=== PATIENT | female | born 1995 | race Caucasian/White ===

== ENCOUNTER → 2017-04-02 | Outpatient (CLI) | payer OTHER ==
[2017-04-02 18:31] LABS: BASO # 0.1 K/mm3 (0.0-0.2); BASO % 0.8 % (0.0-1.0); EOS # 0.1 K/mm3 (0.0-0.50); EOS % 0.8 % (0.0-3.0); LARGE UNSTAINED CELL # 0.1 K/mm3 (0.0-0.4); LARGE UNSTAINED CELL % 1.5 % (0.0-4.0); LYMPH # 2.2 K/mm3 (1.5-6.5); MEAN CORPUSCULAR HEMOGLOBIN 29.2 pg (27.0-33.0); MEAN CORPUSCULAR HGB CONC 34.4 g/dl (32.0-36.5); MEAN CORPUSCULAR VOLUME 84.9 fl (80.0-96.0); MONO # 0.4 K/mm3 (0.0-0.8); MONO % 4.7 % (0.0-5.0); NEUTROPHILS # 5.6 K/mm3 (1.8-7.7); NEUTROPHILS % 67.2 % (36.0-66.0); PLATELET COUNT, AUTOMATED 302 k/mm3 (150-450); RED CELL DISTRIBUTION WIDTH 12.8 % (11.5-14.5); WHITE BLOOD COUNT 8.3 K/mm3 (4.0-10.0)
[2017-04-03 10:33] LABS: HBsAg Prenatal NEGATIVE (NEGATIVE)
== END ==
LOC: M SMT 13:05
PROVIDERS: ATTEND Advanced Practice Midwife
DX: Z34.81 Encounter for supervision of other normal pregnancy, first trimester (principal)

== ENCOUNTER → 2017-04-16 | Outpatient (REF) | payer OTHER | LOC: M LAB REF 17:24 | PROVIDERS: ATTEND Advanced Practice Midwife | DX: Z34.81 Encounter for supervision of other normal pregnancy, first trimester (principal) ==

== ENCOUNTER → 2017-07-01 | Outpatient (CLI) | payer OTHER ==
--- NOTE | 2017-07-01 13:26 | REP ---
OB ULTRASOUND: Real-time sonographic evaluation of the gravid uterus performed. There is a single living intrauterine gestation. Estimated gestational age is 19 weeks 2 days based on LMP with EDC 11/23/2017. Today's measurements indicate appropriate growth. BPD 42 mm = 18 weeks 5 days, 35th percentile HC 167 mm = 19 weeks 3 days, 52nd percentile AC 129 mm = 18 weeks 3 days, 32nd percentile Femur length 29 mm = 18 weeks 6 days, 40th percentile HC/AC ratio 1.29 is slightly above the normal range of 1.06 to 1.25. Estimated weight 255 grams, 27th percentile. Cervix closed and measures 3 cm in length. heart rate 145 beats per minute. SEEN/GROSSLY UNREMARKABLE Lateral ventricles Yes Posterior fossa Yes Upper lip No Four-chamber heart Yes LVOT Yes RVOT No Stomach Yes Cord insertion Yes Three vessel cord No Kidneys Yes Bladder Yes Spine Yes position: Breech. Placenta: Posterior and grade 0 with no previa or abruption. Amniotic fluid: Within normal limits. Signed by Hans Alan MD 07/01/2017 01:44 P
== END ==
LOC: M RAD 11:55
PROVIDERS: ATTEND Obstetrics & Gynecology
DX: Z36 Encounter for antenatal screening of mother (principal)

== ENCOUNTER → 2017-07-20 | Outpatient (CLI) | payer OTHER ==
--- NOTE | 2017-07-20 10:33 | REP ---
Obstetric sonography: History: Supervision of for anatomy. Findings: Scanning through the gravid uterus demonstrates a viable single intrauterine gestation in a breech lie. motion is observed and heart rate is recorded at 157 beats per minute. A posterior grade 0 placenta is seen without evidence of previa or abruption. Amniotic fluid is subjectively normal. Closed cervical length is 3.2 cm visualized transabdominally. No extrauterine abnormalities observed. There has been appropriate interval growth. No anomaly is seen. nose and lips are seen but facial profile could not be adequately visualized. Similarly, there was suboptimal visualization of the heart. The following anatomic structures are identified and felt to be sonographically unremarkable: cranium, choroid plexus, cavum, cerebellum and posterior fossa, lungs, diaphragm, left-sided stomach, abdominal wall cord insertion, three-vessel umbilical cord, kidneys and bladder, spine, upper and lower extremities. Biometry chart: BPD 4.8 cm = 20 weeks 3 days Head circumference 19.0 cm = 21 weeks 2 days Abdominal circumference 16.3 cm = 21 weeks 2 days Femur length 3.8 cm = 22 weeks 1 day Humeral length 3.5 cm = 22 weeks 0 days Cerebellar diameter 2.3 cm = 21 weeks 0 days HC/AC ratio normal 1.17. Cephalic index normal 0.67. Estimated weight 437 grams, 0 pounds 15 ounces, 34th percentile for 22 weeks 0 days. Impression: Viable single intrauterine gestation at 21 weeks 3 days by today's composite criteria. ANTONY by today's sonography November 27, 2017. heart and facial profile less than optimally seen. Signed by Syed Myles MD 07/20/2017 01:18 P
== END ==
LOC: M RAD 08:26
PROVIDERS: ATTEND Specialist
DX: Z36.2 Encounter for other antenatal screening follow-up (principal)

== ENCOUNTER → 2017-08-12 | Outpatient (CLI) | payer OTHER ==
[2017-08-12 20:16] LABS: MEAN CORPUSCULAR HEMOGLOBIN 29.5 pg (27.0-33.0); MEAN CORPUSCULAR VOLUME 89.1 fl (80.0-96.0); PLATELET COUNT, AUTOMATED 261 10^3/uL (150-450); WHITE BLOOD COUNT 12.1 10^3/uL (4.0-10.0)
== END ==
LOC: M SMT 13:06
PROVIDERS: ATTEND Advanced Practice Midwife
DX: Z34.82 Encounter for supervision of other normal pregnancy, second trimester (principal)

== ENCOUNTER → 2017-08-26 | Outpatient (CLI) | payer OTHER | LOC: M LAB 08:05 | PROVIDERS: ATTEND Advanced Practice Midwife | DX: R73.02 Impaired glucose tolerance (oral) (principal) ==

== ENCOUNTER → 2017-10-29 | Outpatient (REF) | payer OTHER | LOC: M LAB REF 13:21 | DX: Z34.83 Encounter for supervision of other normal pregnancy, third trimester (principal) | CPT/HCPCS: 87081 ==

== ENCOUNTER 2017-11-18 05:28 | Inpatient (IN) | payer OTHER ==
[2017-11-18 06:58] LABS: HEMATOCRIT 36.6 % (36.0-47.0); HEMOGLOBIN 12.6 g/dl (12.0-16.0); MEAN CORPUSCULAR HEMOGLOBIN 29.9 pg (27.0-33.0); MEAN CORPUSCULAR HGB CONC 34.4 g/dl (32.0-36.5); MEAN CORPUSCULAR VOLUME 86.7 fl (80.0-96.0); PLATELET COUNT, AUTOMATED 244 10^3/uL (150-450); RED BLOOD COUNT 4.22 10^6/uL (4.00-5.40); WHITE BLOOD COUNT 17.1 10^3/uL (4.0-10.0)
[2017-11-18 07:27] LABS: AMPHETAMINES URINE REFLEX NEGATIVE (NEGATIVE); BARBITURATES URINE REFLEX NEGATIVE (NEGATIVE); BENZODIAZEPINES URINE REFLEX NEGATIVE (NEGATIVE); CANNABINOIDS URINE REFLEX NEGATIVE (NEGATIVE); COCAINE METABOLITE URINE REFLE NEGATIVE (NEGATIVE); METHADONE URINE REFLEX NEGATIVE (NEGATIVE); OPIATES URINE REFLEX NEGATIVE (NEGATIVE); PHENCYCLIDINE URINE REFLEX NEGATIVE (NEGATIVE)
[2017-11-18] MEDS ORDERED: OXYTOCIN 30 UNITS IN 0.9% NaCl 500ML IV BAG (J2590) As Ordered (20:15)
[2017-11-18] MEDS ORDERED: OXYTOCIN DRIP 30 UNITS in APPROPRIATE DILUENT 1 EA IV (22:30)
[2017-11-19] MEDS: LR 1,000 ML IV ×3 (00:28→16:28)
[2017-11-19] MEDS: OXYTOCIN DRIP 30 UNITS in APPROPRIATE DILUENT 1 EA IV (00:28)
[2017-11-19] MEDS ORDERED: ACETAMINOPHEN 500 MG TAB PO (00:30)
[2017-11-19] MEDS ORDERED: ONDANSETRON 4MG/2ML VIAL (J2405) IV (00:30)
[2017-11-19] MEDS ORDERED: DIBUCAINE 1% OINTMENT 30GM TOP (00:30)
[2017-11-19] MEDS ORDERED: MEASLES,MUMPS,RUBELLA VACCINE INJ (MMR-II) (90707) SC (00:30)
[2017-11-19] MEDS ORDERED: PROMETHAZINE 25 MG TAB PO (00:30)
[2017-11-19] MEDS: IBUPROFEN 800 MG TAB PO ×2 (01:59→19:18)
[2017-11-19] MEDS: LIDOCAINE 1% MDV 20ML VIAL IM (02:00)
[2017-11-19] MEDS: PRENATAL VITAMINS CHEWABLE TABLET PO (10:34)
[2017-11-19 11:30] LABS: FETAL SCREEN PROF. 1 1
[2017-11-19] MEDS: RHOGAM 300 MCG (1500 IU) INJ (J2790) IM (11:51)
[2017-11-19] MEDS: DOCUSATE SODIUM 100 MG CAP PO (19:18)
[2017-11-20] MEDS: IBUPROFEN 800 MG TAB PO (05:32)
[2017-11-20] MEDS: PRENATAL VITAMINS CHEWABLE TABLET PO (07:57)
== END 2017-11-20 14:25 | disposition home or self-care (01) | DRG 560 ==
LOC: M LDO 05:28 → M OBS 11-19 01:36 → M LDI 06:19
PROVIDERS: Specialist
PROC: 10E0XZZ Delivery of Products of Conception, External Approach (ICD-10-PCS; principal; 2017-11-19)
PROC: 0HQ9XZZ Repair Perineum Skin, External Approach (ICD-10-PCS; 2017-11-19)
DX: O70.0 First degree perineal laceration during delivery (principal); Z37.0 Single live birth; Z3A.39 39 weeks gestation of pregnancy

== ENCOUNTER → 2018-08-12 | Outpatient (CLI) | payer OTHER ==
[2018-08-12 14:03] LABS: BASO % 0.5 % (0.0-1.0); EOS # 0.1 10^3/uL (0.0-0.50); HEMATOCRIT 38.1 % (36.0-47.0); HEMOGLOBIN 12.7 g/dl (12.0-15.5); IMMATURE GRANULOCYTE % 0.4 % (0-3.0); LYMPH # 1.7 10^3/uL (1.5-6.5); MEAN CORPUSCULAR HEMOGLOBIN 28.5 pg (27.0-33.0); MEAN CORPUSCULAR HGB CONC 33.3 g/dl (32.0-36.5); MEAN CORPUSCULAR VOLUME 85.4 fl (80.0-96.0); MONO # 0.5 10^3/uL (0.0-0.8); MONO % 6.9 % (0.0-5.0); NEUTROPHILS # 5.4 10^3/uL (1.8-7.7); NEUTROPHILS % 69.2 % (36.0-66.0); PLATELET COUNT, AUTOMATED 278 10^3/uL (150-450); RED BLOOD COUNT 4.46 10^6/uL (4.00-5.40); WHITE BLOOD COUNT 7.9 10^3/uL (4.0-10.0)
[2018-08-12 16:36] LABS: CHLAMYDIA DNA AMPLIFICATION NEGATIVE (NEGATIVE); GC DNA AMPLIFICATION NEGATIVE (NEGATIVE)
[2018-08-13 10:18] LABS: HEPATITIS C VIRUS ABY INDEX < 0.0 INDEX (<0.8)
[2018-08-13 10:18] LABS: HBsAg Prenatal NEGATIVE (NEGATIVE); HIV 1&2 SCREEN CENTAUR NEGATIVE (NEGATIVE); RUBELLA IgG QUALITATIVE IMMUNE (IMMUNE)
== END ==
LOC: M SMT 11:49
DX: Z36.89 Encounter for other specified antenatal screening (principal)
CPT/HCPCS: 86762

== ENCOUNTER → 2018-11-04 | Outpatient (CLI) | payer OTHER ==
[~2018-11-04] MED LIST: COLA100C5 PO; IBUP-1114 PO; MAPA500T2 PO; PRENTAB9 PO
--- NOTE | 2018-11-04 20:58 | REP ---
Clinical: Anatomical evaluation. Comparison: 10/14/2018 . Findings: Examination demonstrates a single live intrauterine in breech presentation. motion is identified by technologist. Placenta is noted anterior and grade grade zero without evidence for placenta previa or abruption. Amniotic fluid volume is normal. Cervix measures 3.9 cm in length and appears closed. No evidence for nuchal cord. Gestational age by LMP 21 weeks 3 days with ANTONY 03/14/2019 . Gestational age by current measurements 21 weeks 0 days with ANTONY 03/17/2019 . FHR equals 144 beats per minute. Estimated weight 393 grams ( 34th percentile). Anatomical assessment demonstrates normal structures including cranium, choroid plexus, cavum, cerebellum/posterior fossa, facial features, lungs, four-chamber heart/ventricular outflow tracts, diaphragm, stomach, cord insertion/three-vessel cord, kidneys/bladder, spine, and extremities. Impression: Single live intrauterine in breech presentation demonstrating appropriate interval growth. In conjunction with prior examination anatomical assessment is complete and normal. Electronically Signed by Kristofer Nash MD 11/04/2018 08:49 P
== END ==
LOC: M RAD 13:03
PROVIDERS: ATTEND Advanced Practice Midwife
DX: O32.1XX0 Maternal care for breech presentation, not applicable or unspecified (principal); Z36.89 Encounter for other specified antenatal screening; Z3A.21 21 weeks gestation of pregnancy

== ENCOUNTER → 2018-12-17 | Outpatient (CLI) | payer OTHER ==
[2018-12-17 12:24] LABS: BASO # 0.1 10^3/uL (0.0-0.2); BASO % 0.6 % (0.0-1.0); EOS # 0.1 10^3/uL (0.0-0.50); EOS % 1.5 % (0.0-3.0); HEMATOCRIT 36.2 % (36.0-47.0); HEMOGLOBIN 12.1 g/dl (12.0-15.5); LYMPH # 1.8 10^3/uL (1.5-6.5); MEAN CORPUSCULAR HEMOGLOBIN 29.1 pg (27.0-33.0); MEAN CORPUSCULAR HGB CONC 33.4 g/dl (32.0-36.5); MONO # 0.4 10^3/uL (0.0-0.8); MONO % 4.4 % (0.0-5.0); NEUTROPHILS # 7.1 10^3/uL (1.8-7.7); NEUTROPHILS % 73.6 % (36.0-66.0); PLATELET COUNT, AUTOMATED 219 10^3/uL (150-450); RED BLOOD COUNT 4.16 10^6/uL (4.00-5.40); WHITE BLOOD COUNT 9.6 10^3/uL (4.0-10.0)
== END ==
LOC: M LAB 10:18
PROVIDERS: ATTEND Advanced Practice Midwife
DX: Z34.83 Encounter for supervision of other normal pregnancy, third trimester (principal)

== ENCOUNTER → 2019-02-15 | Outpatient (CLI) | payer OTHER | LOC: M SMT 11:27 | PROVIDERS: ATTEND Advanced Practice Midwife | DX: Z34.83 Encounter for supervision of other normal pregnancy, third trimester (principal); Z3A.00 Weeks of gestation of pregnancy not specified ==

== ENCOUNTER 2019-03-10 00:19 | Inpatient (IN) | payer OTHER ==
[~2019-03-10] VITALS: Ht 162.6 cm; Wt 74.7 kg
[2019-03-10] VITALS (7 sets, daily range): BP systolic 111–131; BP diastolic 59–78
[2019-03-10 01:16] LABS: HEMATOCRIT 36.9 % (36.0-47.0); HEMOGLOBIN 12.5 g/dl (12.0-15.5); MEAN CORPUSCULAR HEMOGLOBIN 29.1 pg (27.0-33.0); MEAN CORPUSCULAR HGB CONC 33.9 g/dl (32.0-36.5); PLATELET COUNT, AUTOMATED 209 10^3/uL (150-450); RED BLOOD COUNT 4.29 10^6/uL (4.00-5.40)
[2019-03-10] MEDS ORDERED: ZANTTAB PO (01:17)
[2019-03-10] MEDS ORDERED: OXYTOCIN 30 UNITS IN 0.9% NaCl 500ML IV BAG (J2590) As Ordered ONE (01:44)
[2019-03-10 02:22] LABS: CORD GAS ABE A -8.9; CORD GAS ABE V -8.3; CORD GAS HCO3 A 18.8 MEQ/L; CORD GAS HCO3 V 19.8 MEQ/L; CORD GAS O2 SAT A 88.2 %; CORD GAS O2 SAT V 59.9 %; CORD GAS PCO2 A 46.8 mmHg; CORD GAS PCO2 V 50.5 mmHg; CORD GAS PH A 7.222 UNITS; CORD GAS PH V 7.212 UNITS; CORD GAS PO2 V 30.3 mmHg; CORD GAS SBC A 17.3 MEQ/L; CORD GAS TCO2 A 20.2 MEQ/L; CORD GAS TCO2 V 21.4 MEQ/L
[2019-03-10] MEDS ORDERED: OXYTOCIN DRIP 30 UNITS in APPROPRIATE DILUENT 1 EA IV SCH (02:37)
[2019-03-10] MEDS ORDERED: METHYLERGONOVINE MALEATE 0.2 MG TAB PO PRN (02:45)
[2019-03-10] MEDS ORDERED: DIBUCAINE 1% OINTMENT 30GM TOP PRN (02:45)
[2019-03-10] MEDS ORDERED: IBUPROFEN 600 MG TAB PO PRN (02:45)
[2019-03-10] MEDS ORDERED: RHOGAM 300 MCG (1500 IU) INJ (J2790) IM SCH (02:45)
[2019-03-10] MEDS ORDERED: DOCUSATE SODIUM 100 MG CAP PO PRN (02:45)
[2019-03-10] MEDS ORDERED: ACETAMINOPHEN TAB 650MG DOSE (2X325MG) PO PRN (02:45)
[2019-03-10] MEDS ORDERED: MOM 30ML SUSPENSION UDC PO PRN (02:45)
[2019-03-10] MEDS ORDERED: ONDANSETRON 4MG/2ML VIAL (J2405) IV PRN (02:45)
[2019-03-10] MEDS ORDERED: ACETAMINOPHEN 500 MG TAB PO PRN (02:45)
[2019-03-10] MEDS ORDERED: ANUSOL HC CREAM 30GM TOP PRN (02:45)
[2019-03-10] MEDS ORDERED: MEASLES,MUMPS,RUBELLA VACCINE INJ (MMR-II) (90707) SC SCH (02:45)
[2019-03-10] MEDS ORDERED: IBUPROFEN 800 MG TAB PO PRN (02:45)
[2019-03-10] MEDS ORDERED: LIDOCAINE 1% MDV 20ML VIAL INFIL ONE (03:00)
--- NOTE | 2019-03-10 05:30 | HPE ---
DATE OF ADMISSION: 03/10/2019 REASON FOR ADMISSION: Labor. HISTORY OF PRESENT ILLNESS: The patient is a 23-year-old 2, para 1 who presents at 39 weeks, 3 days estimated gestational age by last menstrual period, confirmed by first trimester ultrasound who reports contractions throughout the day and they have increased in intensity and frequency. She reports active movement, denies any vaginal bleeding or leakage of fluid. Her course has been unremarkable. She initiated care in her first trimester and has been appropriate throughout. PAST MEDICAL HISTORY: None. PAST SURGICAL HISTORY: She has a tonsillectomy and adenoidectomy. OBSTETRICAL HISTORY: She is 2, para 1. She is proven 8 pounds, 3 ounces. MEDICATIONS: - Zantac - vitamins. ALLERGIES: She has no known drug allergies. SOCIAL HISTORY: She denies any alcohol, tobacco or drug use during her . PHYSICAL EXAMINATION: Vital signs: Stable. She is afebrile. heart rate 150, there is moderate variability, spontaneous accelerations with occasional variable decelerations. She is magalie approximately every 2-3 minutes. General appearance: Well appearing, no acute distress. Lungs: Lungs are clear to auscultation bilaterally. Cardiovascular: Heart regular rate and rhythm. Abdomen: Her abdomen is gravid, nontender. Estimated weight is 3600 grams. Cervical Exam: She is 6 cm dilated, 90% effaced, -2 station. Upon examination the patient experienced a contraction. She had a rupture of membranes which were clear. This was inadvertent. LABS: Blood type is A negative, antibody screen is negative. Rubella is immune. RPR is nonreactive. Hepatitis surface antigen negative. HIV is negative. Hep C is nonreactive. Chlamydia and gonorrhea screen is negative. She had a normal 1-hour Glucola, and she is GBS negative. ASSESSMENT: 1. This patient is a 23-year-old 2, para 1 at 39 weeks 3 days estimated gestational age in active labor. 2. Reassuring status. PLAN: 1. Admit to labor and delivery. CBC, RPR, type and screen. 2. Anticipate spontaneous vaginal delivery.
--- NOTE | 2019-03-10 06:49 | DN ---
DATE OF DELIVERY: 03/10/2019 TIME OF : 0207 GENDER: Female APGARS: 8 and 9. WEIGHT: 3800 grams or 8 pounds 6 ounces. LACERATION: First degree midline laceration. ESTIMATED BLOOD LOSS: 300 mL. ANESTHESIA: None. COUNTS: Four sharps removed from the delivery field. Five laparotomy sponges accounted for prior to and after delivery. DELIVERY NOTE: On 03/10/2019, at 0207, Mrs. Napoles, a 23-year-old, 2, now para 2, had a spontaneous as delivery of a live born female , Apgars 8 and 9, weight 8 pounds 6 ounces or 3800 grams. Head was delivered right occiput anterior (TRINI). There was a nuchal cord which was manually reduced. There was an attempt to deliver the left anterior shoulder with gentle downward traction that was unsuccessful. Luis Enrique maneuver was then employed as well as suprapubic pressure and approximately 10-15 seconds of shoulder dystocia which was alleviated with the suprapubic pressure. This alleviated the left shoulder and this was followed by delivery of the right shoulder and corpus. The was handed to mom with good cry. Cord was clamped times two and was cut by the father under my direction. Cord gases were obtained, 7.22 and 7.21, base excesses of -8.9 and -8.3 respectively. The placenta was then delivered grossly intact. A premixed bag of 500 mL of normal saline was bolused along with uterine massage until the uterus was firm. On inspection, there was a first-degree midline laceration which was repaired with the #3-0 Vicryl Rapide. On reinspection, the cervix, vagina and perineum was grossly intact and hemostatic. Mom and baby recovering in stable condition.
[2019-03-10] MEDS: PRENATAL VITAMINS CHEWABLE TABLET PO SCH (08:58)
[2019-03-11 05:39] VITALS: BP 104/59
[2019-03-11] MEDS: PRENATAL VITAMINS CHEWABLE TABLET PO SCH (07:58)
--- NOTE | 2019-03-11 08:10 | NUR ---
PPD# 1 S: Doing well w/o complaints. +voids, +ambulation and pain well controlled O: vss, AF gen: well appearing abd: soft, nttp ff@U ext: neg calf tenderness A/P: PPD # 1 s/p NSD, recovering in stable condition -continue routine care -d/c plans for tomorrow/ later today Tessa Haile MD
[2019-03-11] MEDS ORDERED: IBUP-1114 PO (09:31)
[2019-03-11] MEDS ORDERED: IBUP1TAB7 PO (09:31)
[2019-03-11] MEDS ORDERED: MAPA500T2 PO (09:31)
[2019-03-11] MEDS ORDERED: MOM30SS PO (09:31)
[2019-03-11] MEDS ORDERED: COLA100C5 PO (09:52)
== END 2019-03-11 12:00 | disposition home or self-care (01) | DRG 560 ==
LOC: M LDO 00:19 → M LDI 00:51 → M OBS 04:38
PROVIDERS: ADMIT Obstetrics & Gynecology; ATTEND Obstetrics & Gynecology
PROC: 10E0XZZ Delivery of Products of Conception, External Approach (ICD-10-PCS; principal; 2019-03-10)
PROC: 0HQ9XZZ Repair Perineum Skin, External Approach (ICD-10-PCS; 2019-03-10)
DX: O70.0 First degree perineal laceration during delivery (principal); O69.82X0 Labor and delivery complicated by other cord entanglement, without compression, not applicable or unspecified; Z37.0 Single live birth

== ENCOUNTER → 2019-06-20 | Outpatient (REF) | payer OTHER ==
[~2019-06-20] MED LIST changes: +IBUP1TAB7 PO; +MOM30SS PO; +ZANT150T40 PO
== END ==
LOC: M LAB REF 19:35
PROVIDERS: ATTEND Advanced Practice Midwife
DX: Z12.4 Encounter for screening for malignant neoplasm of cervix (principal)

== ENCOUNTER 2020-06-23 11:19 | Emergency (ER) | payer OTHER ==
[~2020-06-23] VITALS: Ht 162.6 cm; Wt 54.2 kg
[2020-06-23] MEDS ORDERED: NS 1,000 ML IV ONE (11:45)
[2020-06-23] MEDS ORDERED: METOCLOPRAMIDE INJ 10MG/2ML VIAL (J2765 PER 1) IV ONE (11:45)
[2020-06-23 12:06] LABS: BASO % 0.9 % (0.0-1.0); HEMATOCRIT 43.1 % (36.0-47.0); HEMOGLOBIN 14.7 g/dl (12.0-15.5); LYMPH # 0.9 10^3/uL (1.5-5.0); MEAN CORPUSCULAR HEMOGLOBIN 28.6 pg (27.0-33.0); MEAN CORPUSCULAR HGB CONC 34.1 g/dl (32.0-36.5); MEAN CORPUSCULAR VOLUME 83.9 fl (80.0-96.0); MONO # 0.4 10^3/uL (0.0-0.8); MONO % 11.1 % (0.0-5.0); NEUTROPHILS # 2.2 10^3/uL (1.5-8.5); NEUTROPHILS % 62.7 % (36.0-66.0); PLATELET COUNT, AUTOMATED 235 10^3/uL (150-450); RED BLOOD COUNT 5.14 10^6/uL (4.00-5.40); WHITE BLOOD COUNT 3.5 10^3/uL (4.0-10.0)
[2020-06-23 12:49] LABS: BLOOD UREA NITROGEN 9 MG/DL (7-18); CALCIUM LEVEL 9.3 MG/DL (8.5-10.1); CARBON DIOXIDE LEVEL 24 MEQ/L (21-32); CHLORIDE LEVEL 104 MEQ/L (98-107); CK-MB VALUE MASS < 1.0 NG/ML (<3.6); CPK CREATINE PHOSPHOKINASE 44 U/L (26-192); CREATININE FOR GFR 0.68 MG/DL (0.55-1.30); GLOMERULAR FILTRATION RATE > 60.0 (>60); GLUCOSE, FASTING 78 MG/DL (70-100); HCG, SERUM QUANTITATIVE 115393 MIU/ML; MAGNESIUM LEVEL 2.2 MG/DL (1.8-2.4); MB/CK RELATIVE INDEX 2.27 (< OR =4); POTASSIUM SERUM 3.6 MEQ/L (3.5-5.1); SODIUM LEVEL 135 MEQ/L (136-145); TROPONIN I < 0.02 NG/ML (< 0.10)
--- NOTE | 2020-06-23 14:07 | REPVR ---
PROCEDURE INFORMATION: Exam: US First Trimester, Transabdominal Exam date and time: 06/23/2020 1:33 PM Age: 24 years old Clinical indication: complicated by abdominal or pelvic pain; Generalized abdominal pain; First trimester; Gestational age or lmp: 10; ; Additional info: 10wks pregnat with abd pain TECHNIQUE: Imaging protocol: Real-time transabdominal obstetrical ultrasound of the maternal pelvis and a first trimester , less than 14 weeks 0 days, with image documentation. COMPARISON: No relevant prior studies available. FINDINGS: Gestation: There is a single intrauterine . Embryonic/ heart rate: cardiac activity present at a rate of 170 bpm. Placenta: Unremarkable. No subchorionic bleed. Amniotic fluid: Amniotic fluid is normal for gestational age. BIOMETRY: [place]-Rump length: pole has a crown-rump length measurement of 3.64 cm for a menstrual age of 10 weeks and 4 days. MATERNAL: Uterus: Unremarkable. Cervix: Unremarkable. Closed at the time of the examination Right adnexa: Maternal right ovary measures 2.2 by 2.7 x 2.1 cm. The Left adnexa: Maternal left ovary measures 2 x 2.6 x 2.1 cm. Intraperitoneal space: No intraperitoneal free fluid. IMPRESSION: 1. Single live intrauterine with an estimated menstrual age of 10 weeks and 4 days with a range of 9 weeks and 5 days to 11 weeks and 3 days. Expected date of delivery 01/15/2021 Electronically signed by: Davina Kilpatrick On 06/23/2020 14:07:28 PM
[2020-06-23 14:17] LABS: APPEARANCE, URINE HAZY (CLEAR); BACTERIA, URINE AUTO 1+ (NEGATIVE); BILIRUBIN, URINE AUTO NEGATIVE (NEGATIVE); BLOOD, URINE BLOOD NEGATIVE (NEGATIVE); COLOR, URINE AMBER (YELLOW); GLUCOSE, URINE (UA) AUTO NEGATIVE (NEGATIVE); KETONE, URINE AUTO 2+ mg/dL (NEGATIVE); LEUKOCYTE ESTERASE, URINE AUTO NEGATIVE (NEGATIVE); MUCUS, URINE LARGE (NEGATIVE); NITRITE, URINE AUTO NEGATIVE (NEGATIVE); PROTEIN, URINE AUTO 1+ mg/dL (NEGATIVE); RBC, URINE AUTO 1 /HPF (0-3); SPECIFIC GRAVITY URINE AUTO 1.032 (1.002-1.035); SQUAMOUS EPITHELIAL CELL UR AU 2 /HPF (0-6); UROBILINOGEN, URINE AUTO 0.2 mg/dL (0.0-2.0); WBC, URINE AUTO 3 /HPF (0-3)
[2020-06-23] MEDS ORDERED: KEFL500C17 PO (14:25)
[2020-06-23 14:52] VITALS: BP 110/69
--- NOTE | 2020-06-25 08:48 | ECGEPIP ---
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
[2020-07-08 00:06] LABS: VITAMIN B1 LEVEL WHOLE BLOOD 95.7 nmol/L (66.5-200.0)
== END 2020-06-23 14:55 | disposition home or self-care (01) ==
LOC: M ED 11:19
DX: O23.91 Unspecified genitourinary tract infection in pregnancy, first trimester (principal); O12.11 Gestational proteinuria, first trimester; O26.899 Other specified pregnancy related conditions, unspecified trimester; R19.7 Diarrhea, unspecified; Z79.899 Other long term (current) drug therapy; Z3A.10 10 weeks gestation of pregnancy
CPT/HCPCS: 76801; 80048; 81001; 82550; 82553; 82607; 82746; 83605; 83735; 84252; 84425; 84702; 85025; 86901; 87040; 87086; 87507; 93005; 96361; 96374; 99284; J2765

== ENCOUNTER → 2020-07-10 | Outpatient (CLI) | payer OTHER ==
[~2020-07-10] MED LIST changes: +KEFL500C17 PO
[2020-07-10 12:42] LABS: BASO # 0.1 10^3/uL (0.0-0.2); BASO % 1.8 % (0.0-1.0); EOS # 0.2 10^3/uL (0.0-0.5); HEMATOCRIT 37.7 % (36.0-47.0); HEMOGLOBIN 12.5 g/dl (12.0-15.5); LYMPH % 33.5 % (24.0-44.0); MEAN CORPUSCULAR HEMOGLOBIN 28.3 pg (27.0-33.0); MEAN CORPUSCULAR HGB CONC 33.2 g/dl (32.0-36.5); MEAN CORPUSCULAR VOLUME 85.3 fl (80.0-96.0); MONO # 0.3 10^3/uL (0.0-0.8); MONO % 5.3 % (0.0-5.0); NEUTROPHILS # 3.4 10^3/uL (1.5-8.5); NEUTROPHILS % 56.1 % (36.0-66.0); PLATELET COUNT, AUTOMATED 285 10^3/uL (150-450); RED BLOOD COUNT 4.42 10^6/uL (4.00-5.40)
[2020-07-10 13:48] LABS: HEPATITIS C VIRUS ABY INDEX 0.1 INDEX (<0.8); HIV 1&2 SCREEN CENTAUR NEGATIVE (NEGATIVE)
== END ==
LOC: M PLALAB 08:15
PROVIDERS: ATTEND Advanced Practice Midwife
DX: Z34.81 Encounter for supervision of other normal pregnancy, first trimester (principal); Z3A.00 Weeks of gestation of pregnancy not specified

== ENCOUNTER → 2020-08-14 | Outpatient (CLI) | payer OTHER ==
--- NOTE | 2020-08-14 10:26 | REP ---
INDICATION: ANATOMY. COMPARISON: 06/23/2020. TECHNIQUE: Real-time sonographic evaluation of the gravid uterus performed. FINDINGS: Estimated gestational age is17 weeks 6 days, EDC 01/16/2021. Today's measurements indicate appropriate growth. Presentation: Transverse, head maternal right side. Placenta anterior, grade 0, without evidence of placenta previa. heart rate is recorded at 179 beats per minute. Amniotic fluid is subjectively normal. Closed cervical length is measured at 3.2 cm. Biometry chart: BPD: 39 mm, 17 weeks 6 days, 50th percentile. HC: 148 mm, 18 weeks 0 days, 51st percentile AC: 124 mm, 18 weeks 0 days, 52nd percentile Femur length: 26 mm, 17 weeks 6 days, 47th percentile HC to AC ratio: 1.20, normal range 1.08-1.27. Estimated weight: 215g, 45th percentile. anatomy: Cranium: Grossly normal Lateral Ventricles/Choroid Plexus: Grossly normal Posterior Fossa/Cerebellum: Grossly normal Nose/lips/profile: Not well visualized. Four chamber heart: Grossly normal Right ventricular outflow tract: Grossly normal Left ventricular outflow tract: Grossly normal Left-sided stomach: Grossly normal Kidneys: Grossly normal Bladder: Grossly normal Cord Insertion: Grossly normal 3 vessel cord: Grossly normal Spine: Not well visualized. IMPRESSION: Viable single intrauterine gestation as above. Facial structures and spine not well visualized due to position. <Electronically signed by Hans Alan > 08/14/20 1022
== END ==
LOC: M WHC 09:10
PROVIDERS: ATTEND Advanced Practice Midwife
DX: O32.2XX0 Maternal care for transverse and oblique lie, not applicable or unspecified (principal); Z36.89 Encounter for other specified antenatal screening; Z3A.17 17 weeks gestation of pregnancy

== ENCOUNTER → 2020-10-19 | Outpatient (REF) | payer OTHER ==
[2020-10-19 15:41] LABS: HEMATOCRIT 39.7 % (36.0-47.0); HEMOGLOBIN 12.7 g/dl (12.0-15.5); MEAN CORPUSCULAR HEMOGLOBIN 28.5 pg (27.0-33.0); PLATELET COUNT, AUTOMATED 240 10^3/uL (150-450); RED BLOOD COUNT 4.46 10^6/uL (4.00-5.40); WHITE BLOOD COUNT 9.7 10^3/uL (4.0-10.0)
== END ==
LOC: M PLALAB 12:58
PROVIDERS: ATTEND Advanced Practice Midwife
DX: Z34.92 Encounter for supervision of normal pregnancy, unspecified, second trimester (principal); Z3A.00 Weeks of gestation of pregnancy not specified

== ENCOUNTER → 2020-10-29 | Outpatient (REF) | payer OTHER | LOC: M PLALAB 15:31 | PROVIDERS: ATTEND Advanced Practice Midwife | DX: Z34.92 Encounter for supervision of normal pregnancy, unspecified, second trimester (principal) | CPT/HCPCS: 86850; 86900; 86901; J2790 ==

== ENCOUNTER → 2020-12-14 | Outpatient (REF) | payer OTHER | LOC: M SFHCWAGY 13:05 | PROVIDERS: ATTEND Advanced Practice Midwife | DX: O09.293 Supervision of pregnancy with other poor reproductive or obstetric history, third trimester (principal); Z53.9 Procedure and treatment not carried out, unspecified reason; Z3A.00 Weeks of gestation of pregnancy not specified ==

== ENCOUNTER → 2020-12-28 | Outpatient (CLI) | payer OTHER | LOC: M WHC 12:14 | PROVIDERS: ATTEND Obstetrics & Gynecology | DX: O09.293 Supervision of pregnancy with other poor reproductive or obstetric history, third trimester (principal); Z3A.37 37 weeks gestation of pregnancy ==

== ENCOUNTER → 2021-01-02 | Outpatient (CLI) | payer OTHER ==
--- NOTE | 2021-01-02 18:00 | REP ---
INDICATION: GROWTH. COMPARISON: Comparison sonography is from September.. TECHNIQUE: Transabdominal obstetric sonography. FINDINGS: Scanning through the gravid uterus demonstrates a viable single intrauterine gestation in cephalic lie. motion is observed and heart rate is recorded at 143 beats per minute. A anterior placenta is seen, grade 2, without evidence of placenta previa. Closed cervical length could not be measured due to low head position. No extrauterine abnormality is observed. Amniotic fluid is subjectively normal. STEPHEN is normal at 12.3 cm.. Biometry chart: BPD 8.9 cm, 35 weeks 6 days Head circumference 32.9 cm, 37 weeks 3 days Abdominal circumference 33.9 cm, 37 weeks 6 days Femur length 7.0 cm, 36 weeks 0 days Humeral length 6.3 cm, 36 weeks 2 days HC AC ratio normal 0.97 Cephalic index normal 0.75 Estimated weight 3117 g, 6 lb 13 oz, 39th percentile for 38 weeks 0 days. IMPRESSION: Viable single intrauterine gestation at 36 weeks 5 days by today's composite sonographic criteria. ANTONY by today's sonography January 25, 2021. No complication identified. Expected gestational age estimate based on prior sonography is 38 weeks 0 days, ANTONY January 16, 2021. Estimated weight 39th percentile. <Electronically signed by Robert Myles > 01/02/21 [id number]
== END ==
LOC: M WHC 15:17
PROVIDERS: ATTEND Obstetrics & Gynecology
DX: Z36.9 Encounter for antenatal screening, unspecified (principal); Z3A.38 38 weeks gestation of pregnancy

== ENCOUNTER 2021-01-08 07:35 | Inpatient (IN) | payer OTHER ==
[~2021-01-08] VITALS: Ht 162.6 cm; Wt 74.5 kg
[2021-01-08] MEDS ORDERED: METHYLERGONOVINE MALEATE 0.2 MG/ML VIAL (J2210) IM PRN (08:25)
[2021-01-08] MEDS ORDERED: CARBOPROST TROMETHAMINE 250 MCG/ML AMP IM PRN (08:25)
[2021-01-08] MEDS ORDERED: OXYTOCIN DRIP 30 UNITS in IV 1 EA IV PRN (08:25)
[2021-01-08] MEDS ORDERED: LIDOCAINE 1% MDV 20ML VIAL INFIL PRN (08:25)
[2021-01-08] MEDS ORDERED: TRANEXAMIC ACID INJection 1,000 MG in NS 100 ML IV PRN (08:25)
[2021-01-08 08:47] LABS: HEMATOCRIT 40.6 % (36.0-47.0); HEMOGLOBIN 13.5 g/dl (12.0-15.5); MEAN CORPUSCULAR HEMOGLOBIN 28.9 pg (27.0-33.0); MEAN CORPUSCULAR HGB CONC 33.3 g/dl (32.0-36.5); MEAN CORPUSCULAR VOLUME 86.9 fl (80.0-96.0); PLATELET COUNT, AUTOMATED 211 10^3/uL (150-450); RED BLOOD COUNT 4.67 10^6/uL (4.00-5.40); WHITE BLOOD COUNT 14.1 10^3/uL (4.0-10.0)
[2021-01-08] MEDS ORDERED: OXYTOCIN 30 UNITS IN 0.9% NaCl 500ML IV BAG (J2590) As Ordered ONE (09:01)
[2021-01-08] MEDS ORDERED: OXYTOCIN DRIP 30 UNITS in IV 1 EA IV SCH (10:19)
[2021-01-08] MEDS ORDERED: ACETAMINOPHEN 500 MG TAB PO PRN (10:20)
[2021-01-08] MEDS ORDERED: METHYLERGONOVINE MALEATE 0.2 MG TAB PO PRN (10:20)
[2021-01-08] MEDS ORDERED: RHOGAM 300 MCG (1500 IU) INJ (J2790) IM SCH (10:20)
[2021-01-08] MEDS ORDERED: DIBUCAINE 1% OINTMENT 30GM TOP PRN (10:20)
[2021-01-08] MEDS ORDERED: DOCUSATE SODIUM 100MG CAPSULE PO PRN (10:20)
[2021-01-08] MEDS ORDERED: ANUSOL HC CREAM 30GM TOP PRN (10:20)
[2021-01-08] MEDS ORDERED: ACETAMINOPHEN TAB 650MG DOSE (2X325MG) PO PRN (10:20)
[2021-01-08] MEDS ORDERED: IBUPROFEN 600MG TAB PO PRN (10:20)
[2021-01-08] MEDS ORDERED: MEASLES,MUMPS,RUBELLA VACCINE INJ (MMR-II) (90707) SC SCH (10:20)
--- NOTE | 2021-01-08 10:26 | DNPDOC ---
[facility] Delivery Note Delivery Note DATE OF DELIVERY: 01/08/21 at 0931 PREDELIVERY DIAGNOSIS: 38-6/7 weeks' gestation and labor. POST DELIVERY DIAGNOSIS: Delivered. PROCEDURE: Spontaneous vaginal delivery. CARE TAKER: Pratima Moore CNM, DAMIAN ANESTHESIA: none. ESTIMATED BLOOD LOSS: 100 mL. FINDINGS: 7 pounds 6 ounces; 3350 grams; female infant, Score 9/9. DELIVERY SUMMARY: Debra is a 25-year-old female who is now a who presented to L&D in active labor. She progressed to fully dilated at 0921 and pushed to a living female in the TRINI position with restitution to ROT. The anterior shoulder delivered with ease and the corpus immediately followed. The baby was placed skin to skin active and crying with stimulation. The cord was clamped x2 after pulsation ceased and cut by the FOB. The placenta delivered spontaneously and intact at 0936. Uterine hemostasis was achieved via rapid infusion of IV Pitocin and fundal massage. The vagina, cervix and perineum was inspected and found to be intact. They plan on naming her Sephira. Mom plans to breastfeed. Both mom and baby are in stable condition. All counts of instruments and sponges are correct. PRATIMA MOORE CNM Jan 08, 2021 10:26
--- NOTE | 2021-01-08 10:38 | HPEPDOC ---
Obstetrical History & Physical General Date of Admission Jan 08, 2021 at 07:56 Primary Care Physician: PRATIMA BENAVIDES CNM History of Present Illness Debra is a 25-year-old female who is a with an ANTONY of 01/16/21 based off of her LMP and consistent with her first trimester ultrasound. She initiated care in her first trimester with [facility]. Her has been uncomplicated. She has a history of a shoulder dystocia with her last . She presents to L&D in active labor. She reports contractions that started at 0200. She reports bloody show and active movement. She denies leaking of fluid. Chief Complaint: Active Labor Information Provided By: Patient Age: 25 : 3 Term: 2 Pre-term: 0 Abortions: 0 Livin Care Care: Good Care Dating Final EDC: Jan 16, 2021 Final EDC by: LMP EGA at Admission: 38.6 Antepartum Course Height (inches): 64 Pre- weight (lbs.): 120 Admission Weight (lbs.): 164 Change in Weight (lbs.): 44 Past Medical History Past Obstetrical History #1: Past Obstetrical History: Primgravida Date of Delivery: Nov 29, 2017 Gestation: 39.2 Type of Delivery: Spontaneous Vaginal Del. Sex of Infant: Female (8 lbs 2 oz) Complications: No Past Obstetrical History #2: Past Obstetrical History: Multigravida Date of Delivery: March 10, 2019 Gestation: 39.3 Type of Delivery: Spontaneous Vaginal Del. Sex of Infant: Female ( 8 lbs 6 oz) Complications: Yes (shoulder dystocia 10-15 seconds) [employer] History: No pertinent history Past Medical History Medical History non-contributory Surgical History: Tonsilectomy Family History Significant Family History: Cancer, Diabetes Social History Marital Status: Psychosocial History: No pertinent psych hx * Smoker: non-smoker Alcohol: Denies Drugs: denies Abuse Violence Screening Have you been hit/kicked/slapp: No Have you been sexually assault: No Allergies Coded Allergies: No Known Allergies (Unverified , 11/18/17) Medications Scheduled No.137/Iron/Folic Acd ( Vitamin Tablet) 1 Tab Tab, 1 TAB PO DAILY Physical Examination Physical Examination GENERAL: Alert and oriented times three. BREAST: . ABDOMEN: Gravid and non-tender to touch. FETUS: Is vertex (VTX) by sterile vaginal examination (SVE), fetus is vertex (VTX) by Bon. EFW 7 lbs. LUNGS: Clear to auscultation (CTA). EXTREMITIES: No edema. No clonus. Deep tendon reflexes (DTRs) + 2. Laboratory Data 24H LABS Laboratory Tests 2 01/08/21 08:07: Serology Scanned Report Hepatitis B Testing 01/08/21 08:23: Nucleated Red Blood Cells % (auto) 0.0 CBC/BMP Laboratory Tests 01/08/21 08:23 Urine Culture: No Growth Pertinent Laboratoy Data Blood Type: A- RBC Antibody Screen: Negative HIV: Negative Hepatitis B: Negative Hepatitis C: Negative Rapid Plasma Reagin: Nonreactive Rubella: Immune Chlamydia/Gonorrhea: Negative Group B Streptococcus: Negative Glucose Tolerance Test: 120 Anatomy Ultrasound Ultrasound Date: Jan 02, 2021 Placenta Location: Anterior Normal Anatomy: Yes Placenta Previa: No Estimated Weight (grams): 3117 Vaginal Examination Dilation: 7 cm (7-8 cm) Effacement: 100% Station: 0 Presentation: Cephalic presentation Position: Vertex (occiput) Assessment Heart Rate (FHR): 140 Variability: Moderate Accelerations: Positive Decelerations: None Tocometer Contractions: Yes Frequency: regular Multi-drug resistant Organism: No history of MDRO Assessment/Plan Assessment IUP at 38.6 weeks gestation active labor GBS negative Category I FHR tracing Plan Admit to L&D. OOB ad gregory. Diet: clears Group B Streptococcus (GBS) negative. Labs and intravenous (IV) per unit protocol. Anticipate vaginal delivery C-S as appropriate. PRATIMA BENAVIDES CNM Jan 08, 2021 10:38
[2021-01-08] MEDS: IBUPROFEN 800 MG TAB PO PRN ×2 (12:17→20:29)
[2021-01-08 12:34] VITALS: BP 117/67
[2021-01-08 18:00] VITALS: BP 121/80
[2021-01-09 06:00] VITALS: BP 114/59
[2021-01-09] MEDS: PRENATAL VITAMINS CHEWABLE TABLET PO SCH (10:24)
[2021-01-09] MEDS: IBUPROFEN 800 MG TAB PO PRN (14:38)
[2021-01-09 18:00] VITALS: BP 129/57
[2021-01-10] MEDS: IBUPROFEN 800 MG TAB PO PRN (00:50)
[2021-01-10 06:00] VITALS: BP 114/60
[2021-01-10] MEDS: PRENATAL VITAMINS CHEWABLE TABLET PO SCH (09:00)
== END 2021-01-10 10:50 | disposition home or self-care (01) | DRG 560 ==
LOC: M LDO 07:35 → M LDI 07:56 → M OBS 11:59
PROVIDERS: ADMIT Specialist; ATTEND Advanced Practice Midwife
PROC: 10E0XZZ Delivery of Products of Conception, External Approach (ICD-10-PCS; principal; 2021-01-08)
DX: O80 Encounter for full-term uncomplicated delivery (principal); Z37.0 Single live birth; Z3A.38 38 weeks gestation of pregnancy

== ENCOUNTER → 2021-07-24 | Outpatient (REF) | payer OTHER | LOC: M SFHCWAGY 13:14 | PROVIDERS: ATTEND Advanced Practice Midwife | DX: Z12.4 Encounter for screening for malignant neoplasm of cervix (principal) ==

== ENCOUNTER → 2022-09-30 | Outpatient (REF) | payer OTHER | LOC: M LAB REF 16:21 | PROVIDERS: ATTEND Physician Assistant | DX: N89.8 Other specified noninflammatory disorders of vagina (principal) ==

== ENCOUNTER → 2023-01-09 | Outpatient (REF) | payer OTHER | LOC: M LAB REF 18:13 | PROVIDERS: ATTEND Physician Assistant | DX: R35.0 Frequency of micturition (principal) ==